=== PATIENT | female | born 1955 | race Caucasian/White ===

== ENCOUNTER 2017-09-05 09:00 | Day surgery (SDC) | payer MEDICARE, BC, OTHER ==
[2017-09-05] MEDS: Lactated Ringers 1,000 ML IV SCH (10:02)
[2017-09-05] MEDS ORDERED: fentaNYL 100 MCG/2 ML SDV ONE (10:21)
[2017-09-05] MEDS ORDERED: Propofol 200 MG/20 ML SDV ONE ×2 (10:22→10:46)
[2017-09-05 12:45] VITALS: BP 117/67
--- NOTE | 2017-09-05 12:45 | OR ---
PREOPERATIVE DIAGNOSIS: Positive FIT test. POSTOPERATIVE DIAGNOSIS: Positive FIT test. PROCEDURE PERFORMED: Colonoscopy with polypectomy at 90 cm, 2 at 80 cm and 1 at 40 cm. INDICATION: The patient is a 62-year-old female who had a positive FIT test. Her last colonoscopy was over 10 years ago, presents for repeat colonoscopy at this time. This was done in procedure room. PROCEDURE IN DETAIL: She was placed in left lateral position. First, a rectal exam was done, it was normal. Scope was introduced in to the rectum, slowly advanced through the rectum, sigmoid, descending, transverse, and ascending colon until the cecum was reached. The scope was slowly withdrawn, looking at all mucosal surfaces on the way out. At approximately 90 cm, a small polyp was noted, removed by hot loop forceps, and sent to pathology. Further down at 80 cm, there were 2 small polyps noted, again were removed by hot loop forceps, and then at 40 cm, a 4th polyp was located, removed by hot loop forceps. The scope was then withdrawn. The remainder of the exam was normal. FINAL DIAGNOSIS: Polyps at 90, 2 at 80, and then 1 at 40 cm. BKD: 09/05/2017 11:22:27 MODL: 09/05/2017 12:37:39 /[id number]
== END 2017-09-05 12:10 | disposition home or self-care (01) ==
LOC: VM.SDS 09:00
PROVIDERS: ATTEND Surgery
DX: D12.6 Benign neoplasm of colon, unspecified (principal); J30.1 Allergic rhinitis due to pollen; I10 Essential (primary) hypertension; E03.9 Hypothyroidism, unspecified; E11.9 Type 2 diabetes mellitus without complications; Z79.899 Other long term (current) drug therapy; Z79.82 Long term (current) use of aspirin; Z79.84 Long term (current) use of oral hypoglycemic drugs
CPT/HCPCS: 00811; 82962; 88305; J2704; J3010; J7120

== ENCOUNTER 2022-11-01 09:20 | Day surgery (SDC) | payer MEDICARE, BC, OTHER ==
[~2022-11-01 09:20] MED LIST: Lactated Ringers 1,000 ML IV SCH; Propofol 200 MG/20 ML SDV ONE; fentaNYL 100 MCG/2 ML SDV ONE
[2022-11-01] MEDS ORDERED: Propofol 200 MG/20 ML SDV ONE (10:33)
[2022-11-01 11:34] VITALS: BP 130/79; PULSE 82
== END 2022-11-01 12:11 | disposition home or self-care (01) ==
LOC: VM.SDS 09:20
PROVIDERS: ATTEND Surgery
DX: D12.6 Benign neoplasm of colon, unspecified (principal); K21.9 Gastro-esophageal reflux disease without esophagitis; E11.9 Type 2 diabetes mellitus without complications; E78.5 Hyperlipidemia, unspecified; I10 Essential (primary) hypertension; M19.90 Unspecified osteoarthritis, unspecified site; E03.9 Hypothyroidism, unspecified; D50.9 Iron deficiency anemia, unspecified; F32.A Depression, unspecified; E66.9 Obesity, unspecified; Z68.41 Body mass index [BMI] 40.0-44.9, adult; Z86.010 Personal history of colon polyps; Z91.048 Other nonmedicinal substance allergy status; Z79.84 Long term (current) use of oral hypoglycemic drugs; Z79.899 Other long term (current) drug therapy; Z79.890 Hormone replacement therapy
CPT/HCPCS: 00811; 82947; 88305; J2704; J3010; J7120

== ENCOUNTER 2023-02-10 13:29 | Emergency (ER) | payer MEDICARE, BC, OTHER ==
[2023-02-10 14:26] VITALS: BP 155/67; PULSE 90
[2023-02-10 14:27] LABS: BASOPHILS PERCENT AUTO 0.4 % (0.2-1.2); EOSINOPHILS ABSOLUTE AUTO 0.1 x10^3/uL (0.0-0.5); HEMATOCRIT 38.3 % (33.0-47.0); HEMOGLOBIN 12.9 g/dL (12.0-16.0); IMMATURE GRAN ABSOLUTE AUTO 0.03 x10^3/uL (0.00-0.07); LYMPHOCYTES ABSOLUTE AUTO 1.1 x10^3/uL (1.0-4.8); LYMPHOCYTES PERCENT AUTO 11.5 % (25.0-50.0); MEAN CORPUSCULAR HEMOGLOBIN 28.9 pg (26.0-32.0); MEAN CORPUSCULAR HGB CONC 33.7 g/dL (32.0-36.0); MEAN CORPUSCULAR VOLUME 85.7 fL (78.0-93.0); MONOCYTES ABSOLUTE AUTO 0.9 x10^3/uL (0.0-0.8); MONOCYTES PERCENT AUTO 9.1 % (2.0-11.0); NEUTROPHILS ABSOLUTE AUTO 7.5 x10^3/uL (1.8-7.7); NEUTROPHILS PERCENT AUTO 77.7 % (50.0-80.0); PLATELET COUNT,PLT 220 x10^3/uL (130-400); RED BLOOD CELL COUNT 4.47 x10^6/uL (4.00-5.50); WHITE BLOOD CELL COUNT,WBC 9.6 x10^3/uL (4.0-10.0)
[2023-02-10 14:42] LABS: ALBUMIN 3.2 g/dL (3.4-5.0); CALCIUM 9.1 mg/dL (8.5-10.1); CREATININE 0.9 mg/dL (0.55-1.02); EST CRCL DRUG DOSING (CG) 43.57 mL/min; POTASSIUM,K 3.8 mmol/L (3.5-5.1); PROTEIN TOTAL,TP 7.4 g/dL (6.4-8.2)
[2023-02-10 14:43] LABS: A/G RATIO 0.76; BILIRUBIN TOTAL 0.3 mg/dL (0.2-1.0); C-REACTIVE PROTEIN 2.82 mg/dL (<=0.30)
[2023-02-10 14:45] LABS: ANION GAP 11.8 mmol/L (5-15)
== END 2023-02-10 15:15 | disposition home or self-care (01) ==
LOC: VM.ED 13:29
DX: U07.1 COVID-19 (principal); E78.00 Pure hypercholesterolemia, unspecified; I10 Essential (primary) hypertension; K21.9 Gastro-esophageal reflux disease without esophagitis; M19.90 Unspecified osteoarthritis, unspecified site; E11.9 Type 2 diabetes mellitus without complications; E03.9 Hypothyroidism, unspecified; D64.9 Anemia, unspecified; E66.9 Obesity, unspecified; Z68.41 Body mass index [BMI] 40.0-44.9, adult; Z91.048 Other nonmedicinal substance allergy status; Z79.899 Other long term (current) drug therapy
CPT/HCPCS: 36415; 71045; 80053; 85025; 86140; 99284; 99285